=== PATIENT | male | born 2000 | race Caucasian/White ===

== ENCOUNTER 2018-12-23 17:21 | Emergency (ER) | payer OTHER ==
[~2018-12-23] VITALS: Ht 180.3 cm; Wt 95.2 kg
[2018-12-23] MEDS ORDERED: Amoxicillin875 MG PO (18:03)
[2018-12-23] MEDS ORDERED: ALBU90OI INH (18:03)
== END 2018-12-23 18:03 | disposition home or self-care (01) ==
LOC: ER 17:21
DX: H66.93 Otitis media, unspecified, bilateral (principal); F17.200 Nicotine dependence, unspecified, uncomplicated
CPT/HCPCS: 99282

== ENCOUNTER 2019-02-09 11:52 | Emergency (ER) | payer OTHER ==
[~2019-02-09] VITALS: Ht 180.3 cm; Wt 93.0 kg
[~2019-02-09 11:52] MED LIST: ALBU90OI INH; Amoxicillin875 MG PO
== END 2019-02-09 14:10 | disposition home or self-care (01) ==
LOC: ER 11:52
DX: N50.811 Right testicular pain (principal); N50.82 Scrotal pain
CPT/HCPCS: 76870; 99284-25